=== PATIENT | female | born 1975 | race Caucasian/White ===

== ENCOUNTER 2018-03-20 15:11 | Emergency (ER) | payer BC ==
[2018-03-20 15:17] VITALS: BP 116/77; BMI 36.5
--- NOTE | 2018-03-20 15:53 | DR.GENAD ---
HPI - PCP Primary Care Physician: IJEOMA - Complaint/Symptoms Chief Complaint Doctors Comments: Below information noted in nurses notes and pt. They are long standing. She has a neurolgy evaluation next week and also a follow-up one coming up with her slag expander. She talked about abdominal pain possibly from a left over FB in her from when she had a gastric bypass 4 yrs. ago. She wants to be referred to a Psychiatrist for her PTSD as the psychiatrist that her PCP had referred her to does not accept her health insurance. Chief Complaint:: PT. C/O PAIN FROM HER ARMS AND CHEST ALL THE WAY DOWN TO HER TOES. PT. ALSO C/O DISCOMFORT TO LEFT CHEST WALL WHERE PACEMAKER IS LOCATED & STATES THAT HER BLOOD PRESSURE WOULD GO HIGH AND THEN BOTTOM OUT. PT. ALSO STATES SHE IS DIZZY ALL OF THE TIME AND FALLS FREQUENTLY. - Nurses notes reviewed Nurses Notes Review: Yes - Source History Provided: Patient - Mode of Arrival Mode of Arrival: Wheelchair - Timing Onset of Chief Complaint: 03/19/18 PMH - PMH Past Medical History: Yes Past Medical History: Anxiety, Depression, GERD, Hypertension Past Medical History Comment: WOLFE'S PALSY, FIBROMYAGLIA, PTSD, Past Surgical History: Yes Surgical History: Appendectomy, , Hysterectomy, Weight Loss Surgery, Other Past Surgical History Comment: PACEMAKER, GASTRIC BYPASS, VEINS STRIPPED OUT OF LEGS - Family History History of Family Medical Conditions: Yes Family Medical History: Hypertension - Social History Does patient currently use any type of tobacco product: No Have you used tobacco products in the last 12 months: No Type of Tobacco Use: None Does any household member use tobacco: No Alcohol Use: None Do you use any recreational Drugs:: No Lives With: Dad Lives Where: Home - infectious screening In the last 2 months have you had wt loss of >10#?: NO Have you had fever, night sweats or hemotysis?: No Have you traveled outside the country in the last 6 months?: No Isolation: Standard ROS - Review of Systems Constitutional: No Symptoms Reported Eyes: No Symptoms Reported ENTM: No Symptoms Reported Respiratoy: No Symptoms Reported Cardiovascular: No Symptoms Reported Gastrointestinal/Abdominal: Abdominal Pain Genitourinary: No Symptoms Reported Neurological: Other (feet pain) Musculoskeletal: Other (pain all over) Integumentary: No Symptoms Reported Hematologic/Lymphatic: No Symptoms Reported Endocrine: No Symptoms Reported Psychiatric: Other (PTSD) PE - Vital Signs Vitals: Temperature 98.2 F Pulse Rate 66 Respiratory Rate 17 Blood Pressure 116/77 O2 Sat by Pulse Oximetry 97 - General Limitations: No Limitations General Appearance: Alert, In No Apparent Distress - Head Head Exam: Normal Inspection - Eyes Eye exam: Normal Appearance - ENT ENT Exam: Normal Exam - Neck Neck Exam: Normal Inspection - Chest Chest Inspection: Normal Inspection - Respiratory Respiratory Exam: Normal Lung Sounds Bilat - Cardiovascular Cardiovascular Exam: Regular Rate, Normal Rhythm, +S1, +S2 - Abdominal Exam Abdominal Exam: Normal Inspection, Normal Bowel Sounds, Soft - Extremities Extremities Exam: Normal Inspection - Back Back Exam: Normal Inspection - Neurologic Neurological Exam: Alert, Oriented X3 - Psychiatric Psychiatric Exam: Normal Affect - Skin Skin Exam: Warm, Dry, Intact, Normal Color ROR - Labs Reviewed Result Diagrams: 03/20/18 16:10 03/20/18 16:10 Laboratory: WBC 13.8 X10^3/uL (3.6-10.0) H 03/20/18 16:10 RBC 4.60 X10^6/uL (3.5-5.4) 03/20/18 16:10 Hgb 14.2 g/dL (12.0-16.0) 03/20/18 16:10 Hct 41.0 % (36.0-47.0) 03/20/18 16:10 MCV 89.1 fL (80.0-100.0) 03/20/18 16:10 MCH 30.9 pg (27.0-34.0) 03/20/18 16:10 MCHC 34.6 g/dL (33.0-35.0) 03/20/18 16:10 RDW 12.3 % (11.6-16.5) 03/20/18 16:10 Plt Count 248 X10^3/uL (150.0-450.0) 03/20/18 16:10 MPV 8.4 fL (7.4-11.0) 03/20/18 16:10 Neut % (Auto) 59.9 % (42.0-75.0) 03/20/18 16:10 Lymph % (Auto) 26.6 % (21.0-51.0) 03/20/18 16:10 [place] % (Auto) 8.4 % (0.0-13.0) 03/20/18 16:10 Eos % (Auto) 4.7 % (0.9-2.9) H 03/20/18 16:10 Baso % (Auto) 0.4 % (0.2-1.0) 03/20/18 16:10 Neut # (Auto) 8.3 x10^3/uL (2.2-4.8) H 03/20/18 16:10 Lymph # (Auto) 3.7 X10^3/uL (1.3-2.9) H 03/20/18 16:10 [place] # (Auto) 1.2 x10^3/uL (0.3-0.8) H 03/20/18 16:10 Eos # (Auto) 0.7 x10^3/uL (0.0-0.2) H 03/20/18 16:10 Baso # (Auto) 0.1 X10^3/uL (0.0-0.1) 03/20/18 16:10 Absolute Nucleated RBC 0.0 /100WBC 03/20/18 16:10 Sodium 138 mmol/L (136-145) 03/20/18 16:10 Corrected Sodium TNP 03/20/18 16:10 Potassium 4.1 mmol/L (3.5-5.1) 03/20/18 16:10 Chloride 101 mmol/L (98-107) 03/20/18 16:10 Carbon Dioxide 29.6 mmol/L (21-32) 03/20/18 16:10 BUN 10 mg/dL (7-18) 03/20/18 16:10 Creatinine 0.91 mg/dL (0.55-1.02) 03/20/18 16:10 Est GFR (MDRD) Af Amer > 60 (>60) 03/20/18 16:10 Est GFR (MDRD) Non-Af > 60 (>60) 03/20/18 16:10 Glucose 89 mg/dL (65-99) 03/20/18 16:10 Calcium 8.5 mg/dL (8.5-10.1) 03/20/18 16:10 Corrected Calcium TNP 03/20/18 16:10 Total Bilirubin 0.30 mg/dL (0.2-1.0) 03/20/18 16:10 AST 59 Units/L (15-37) H 03/20/18 16:10 ALT 54 Units/L (12-78) 03/20/18 16:10 Alkaline Phosphatase 108 Units/L (46-116) 03/20/18 16:10 Total Protein 7.9 g/dL (6.4-8.2) 03/20/18 16:10 Albumin 3.9 g/dL (3.4-5.0) 03/20/18 16:10 Globulin 4.0 g/dL (2.5-4.5) 03/20/18 16:10 Albumin/Globulin Ratio 1.0 Ratio (1.1-2.1) L 03/20/18 16:10 - XRAY XRAY Interpreted by: Radiologist (No CT Scan evidence of acute abdominal or pelvoc pathology.) - Diagnosis Discharge Problem: Abdominal pain, Pain syndrome, chronic, Fibromyalgia - Discharge Plan Disposition: HOME, SELF-CARE Condition: Stable - Follow ups/Referrals Follow ups/Referrals: HOLDEN RAPHAEL [Primary Care Provider] - 3 days - Instructions Instructions: Abdominal Pain, Adult, [id number], Musculoskeletal Pain
[2018-03-20] MEDS ORDERED: PHENERGAN INJ 25 MG IM ONE (16:00)
[2018-03-20] MEDS ORDERED: PHENERGAN INJ 25 MG ONE (16:07)
[2018-03-20] MEDS ORDERED: PHENERGAN INJ 25 MG IV ONE (16:13)
[2018-03-20 16:18] LABS: BASOPHILS # (AUTO) 0.1 X10^3/uL (0.0-0.1); BASOPHILS % (AUTO) 0.4 % (0.2-1.0); EOSINOPHILS # (AUTO) 0.7 x10^3/uL (0.0-0.2); EOSINOPHILS % (AUTO) 4.7 % (0.9-2.9); HEMOGLOBIN 14.2 g/dL (12.0-16.0); LYMPHOCYTES # (AUTO) 3.7 X10^3/uL (1.3-2.9); LYMPHOCYTES % (AUTO) 26.6 % (21.0-51.0); MEAN CORPUSCULAR HEMOGLOBIN 30.9 pg (27.0-34.0); MEAN CORPUSCULAR HGB CONC 34.6 g/dL (33.0-35.0); MEAN CORPUSCULAR VOLUME 89.1 fL (80.0-100.0); MEAN PLATELET VOLUME 8.4 fL (7.4-11.0); MONOCYTES # (AUTO) 1.2 x10^3/uL (0.3-0.8); MONOCYTES % (AUTO) 8.4 % (0.0-13.0); NEUTROPHILS # (AUTO) 8.3 x10^3/uL (2.2-4.8); NEUTROPHILS % (AUTO) 59.9 % (42.0-75.0); PLATELET COUNT 248 X10^3/uL (150.0-450.0); RED CELL DISTRIBUTION WIDTH 12.3 % (11.6-16.5); WHITE BLOOD COUNT 13.8 X10^3/uL (3.6-10.0)
[2018-03-20 16:29] LABS: ALANINE AMINOTRANSFERASE 54 Units/L (12-78); ALBUMIN 3.9 g/dL (3.4-5.0); ALKALINE PHOSPHATASE 108 Units/L (46-116); ASPARTATE AMINO TRANSFERASE 59 Units/L (15-37); BLOOD UREA NITROGEN 10 mg/dL (7-18); CALCIUM 8.5 mg/dL (8.5-10.1); CARBON DIOXIDE 29.6 mmol/L (21-32); CHLORIDE 101 mmol/L (98-107); CREATININE 0.91 mg/dL (0.55-1.02); SODIUM 138 mmol/L (136-145); TOTAL PROTEIN 7.9 g/dL (6.4-8.2); eGFR BLACK RACES > 60 (>60); eGFR NON BLACK RACES > 60 (>60)
[2018-03-20] MEDS ORDERED: TORADOL 30 MG VIAL IVP ONE (17:25)
[2018-03-20] MEDS ORDERED: TORADOL 30 MG VIAL ONE (17:46)
--- NOTE | 2018-03-20 18:53 | CT ---
HISTORY: Patient complains of pain from her arms and chest all the way down to her toes. Study: CT abdomen and pelvis with contrast Comparison: None. Technique: Multiple axial images of the abdomen and pelvis were obtained from the lung bases to the pubic symphy sis with the administration of IV contrast. Dose reduction techniques including Automated Exposure C ontrol (AEC) and adjustment of mA and kV were utilized. Findings: The visualized portions of the lung bases are unremarkable. The liver, spleen, pancreas, kidneys, an d adrenal glands are unremarkable in their CT appearance. The gallbladder is surgically absent. Posts urgical changes status post gastric bypass surgery. No significant mesenteric lymphadenopathy or str anding can be observed. No free fluid or free air is seen within the abdomen. Small ventral hernia containing bowel that is otherwise unremarkable. The large and small bowel appear normal. The appendi x is surgically absent. The uterus and ovaries appear surgically absent. The urinary bladder is gross ly unremarkable. Degenerative changes of the spine. No aggressive osseous lesions. IMPRESSION: No CT evidence of acute abdominal/pelvic pathology. Reported By:
== END 2018-03-20 19:07 | disposition home or self-care (01) ==
LOC: ER 15:35
DX: R10.84 Generalized abdominal pain (principal); G89.4 Chronic pain syndrome; M79.7 Fibromyalgia
CPT/HCPCS: 36415; 74177; 80053; 85025; 96365; 96374; 96375; 99282; 99283; A4222; J1885; J2550